=== PATIENT | male | born 1970 ===

== ENCOUNTER 2019-02-25 23:19 | Emergency (ER) | payer OTHER ==
[2019-02-25 23:21] VITALS: BMI 29.5
[2019-02-25 23:33] VITALS: BP 131/89; PULSE 76; RESP 20; TEMP 98; O2SAT 96
[2019-02-26] MEDS ORDERED: cefTRIAXone (Rocephin) 250 mg Inj IM STA (00:27)
--- NOTE | 2019-02-26 00:27 | C.PDOC ---
History Of Present Illness 49 year old male brought in by sexual partner to be evaluated for STD after she developed symptoms. Patient states he is asymptomatic at this time, reports he was checked out three months ago and everything was fine. No complaints at this time. Time Seen by Provider: 02/25/19 23:38 Chief Complaint (Nursing): Male Genitourinary History Per: Patient History/Exam Limitations: no limitations Onset/Duration Of Symptoms: Hrs Past Medical History Reviewed: Historical Data, Nursing Documentation, Vital Signs Vital Signs: Last Vital Signs Temp 98 F 02/25/19 23:29 Pulse 76 02/25/19 23:29 Resp 20 02/25/19 23:29 BP 131/89 02/25/19 23:29 Pulse Ox 96 02/25/19 23:29 Primary Care Provider: Dewayne,Med Surg Family History: States: Unknown Family Hx - Social History Hx Alcohol Use: No Hx Substance Use: No - Immunization History Hx Tetanus Toxoid Vaccination: No Hx Influenza Vaccination: No Hx Pneumococcal Vaccination: No Review Of Systems Constitutional: Negative for: Fever, Chills Gastrointestinal: Negative for: Abdominal Pain Genitourinary: Negative for: Dysuria, Penile Discharge, Scrotal Pain, Rash, Penile Pain Musculoskeletal: Negative for: Back Pain Physical Exam - Physical Exam Appears: Well, Non-toxic, No Acute Distress Skin: Normal Color, Warm Head: Atraumatic, Normacephalic Eye(s): bilateral: Normal Inspection Gastrointestinal/Abdominal: Soft, No Tenderness Back: No CVA Tenderness Male Genital: Other (Declined) Neurological/Psych: Oriented x3, Normal Speech ED Course And Treatment O2 Sat by Pulse Oximetry: 96 (Room air) Pulse Ox Interpretation: Normal Medical Decision Making Medical Decision Making: GC/Chlamydia cultures sent, patient will receive empiric treatment here in the ER, advised to abstain from sex until antibiotic treatment is complete and follow up with primary. Disposition Counseled Patient/Family Regarding: Studies Performed, Diagnosis, Need For Followup, Rx Given - Disposition Referrals: [facility] [Outside] Disposition: HOME/ ROUTINE Disposition Time: 00:26 Condition: STABLE Prescriptions: Doxycycline Monohydrate 100 mg PO BID 10 Days tablet Instructions: Sexually-Transmitted Diseases (DC) Forms: Gen Discharge Inst Azerbaijani, [employer] (Azerbaijani) Print Language: MONGOLIAN - Clinical Impression Clinical Impression: Sexually transmitted disease (STD) - Scribe Statement The provider has reviewed the documentation as recorded by the Scribcathryn Davies All medical record entries made by the Melanyibcathryn were at my direction and personally dictated by me. I have reviewed the chart and agree that the record accurately reflects my personal performance of the history, physical exam, medical decision making, and the department course for this patient. I have also personally directed, reviewed, and agree with the discharge instructions and disposition.
== END 2019-02-26 00:51 | disposition home or self-care (01) ==
LOC: C.ER 23:19
DX: A64 Unspecified sexually transmitted disease (principal)
CPT/HCPCS: 87491; 87591; 96372; 99282; J0696